=== PATIENT | male | born 2000 | race Caucasian/White ===

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

== ENCOUNTER 2020-03-23 16:55 | Emergency (ER) | payer BC ==
[~2020-03-23] VITALS: Ht 175.3 cm; Wt 61.4 kg
[~2020-03-23 16:55] MED LIST: LEXAPRO 10MG10 MG PO
[2020-03-23 17:02] VITALS: TEMP 98.5
[2020-03-23 17:25] LABS: BASO # 0.1 (0.0-0.2); BASO % 0.5 % (0.0-2.0); EOS % 0.4 % (0-4.0); GRAN # 8.8 (1.4-6.5); GRAN % 80.3 % (42.2-75.2); HEMATOCRIT 42.2 % (36.0-47.0); LYMPH # 1.3 (1.2-3.4); LYMPH % 12.3 % (20.0-51.0); MEAN CELL VOLUME 87 fl (80.0-95.0); MEAN CORPUSCULAR HEMOGLOBIN 31 pg (26.0-32.0); MEAN CORPUSCULAR HGB CONC 36 g/dl (33.0-37.0); MEAN PLATELET VOLUME 10.1 fl (7.4-10.4); MONO # 0.7 (0.1-0.6); PLATELET COUNT 269 K/mm3 (130-400); RED BLOOD COUNT 4.86 M/mm3 (4.20-5.60)
[2020-03-23 17:39] LABS: ALBUMIN 5.3 gm/dL (3.5-5.0); BILIRUBIN,TOTAL 0.6 mg/dL (0.0-1.0); CALCIUM 9.5 mg/dL (8.4-10.2); CREATININE, serum 1.01 (0.66-1.25); POTASSIUM 3.5 mmol/L (3.4-5.0); TOTAL PROTEIN 8.5 gm/dL (6.4-8.2)
[2020-03-23] MEDS ORDERED: NORCO 325 MG-51 TAB PO (19:27)
[2020-03-23 20:14] VITALS: BP 121/76; PULSE 74
== END 2020-03-23 20:14 | disposition home or self-care (01) ==
LOC: COL.ER 16:55
PROVIDERS: Emergency Medicine
DX: S62.316A Displaced fracture of base of fifth metacarpal bone, right hand, initial encounter for closed fracture (principal); S02.832A Fracture of medial orbital wall, left side, initial encounter for closed fracture; S02.2XXA Fracture of nasal bones, initial encounter for closed fracture; S02.40DA Maxillary fracture, left side, initial encounter for closed fracture; S01.511A Laceration without foreign body of lip, initial encounter; R40.2410 Glasgow coma scale score 13-15, unspecified time; W17.89XA Other fall from one level to another, initial encounter; Y92.89 Other specified places as the place of occurrence of the external cause
CPT/HCPCS: J1885; J2270; J2405; J7030

== ENCOUNTER 2020-12-08 22:27 | Emergency (ER) | payer BC ==
[~2020-12-08] VITALS: Ht 172.7 cm; Wt 68.2 kg
[~2020-12-08 22:27] MED LIST changes: +NORCO 325 MG-51 TAB PO
[2020-12-08 22:28] VITALS: TEMP 98.1
[2020-12-08 23:27] LABS: BASO % 0.4 % (0.0-2.0); EOS % 0.5 % (0-4.0); GRAN # 5.3 (1.4-6.5); GRAN % 65.2 % (42.2-75.2); HEMATOCRIT 37.9 % (36.0-47.0); HEMOGLOBIN 13.2 g/dl (12.5-16.1); LYMPH % 24.5 % (20.0-51.0); MEAN CELL VOLUME 89 fl (80.0-95.0); MEAN CORPUSCULAR HEMOGLOBIN 31 pg (26.0-32.0); MEAN CORPUSCULAR HGB CONC 35 g/dl (33.0-37.0); MEAN PLATELET VOLUME 10.6 fl (7.4-10.4); MONO # 0.7 (0.1-0.6); PLATELET COUNT 245 K/mm3 (130-400); RED BLOOD COUNT 4.25 M/mm3 (4.20-5.60); REDCELL DISTRIBUTION WIDTH-CV 11.9 % (11.5-14.5)
[2020-12-08 23:30] LABS: PH 6 (5-8); SQUAMOUS EPITHELIAL None Seen /hpf; URINE APPEARANCE Clear; URINE BACTERIA None Seen /hpf; URINE BILIRUBIN Negative (NEGATIVE); URINE BLOOD 1+ (NEGATIVE); URINE COLOR Colorless; URINE GLUCOSE Negative (NEGATIVE); URINE KETONE Negative (NEGATIVE); URINE LEUKOCYTE ESTERASE Negative (NEGATIVE); URINE NITRATE Negative (NEGATIVE); URINE PROTEIN(semi-quant) Negative (NEGATIVE); URINE RBC None Seen /hpf; URINE UROBILINOGEN Negative (NEGATIVE); URINE WBC 0-2 /hpf
[2020-12-08 23:35] LABS: INR 1.2 (0.8-3.0); PROTHROMBIN TIME 12.9 SECONDS (9.7-12.8)
[2020-12-08 23:38] LABS: PARTIAL THROMBOPLASTIN TIME 26.7 SECONDS (26.0-37.0)
[2020-12-08 23:38] LABS: COLLECTION METHOD CLEAN CATCH
[2020-12-08 23:39] LABS: TRICYCLIC ANTIDEPRESS URINE NEGATIVE
[2020-12-08 23:50] LABS: ALANINE AMINOTRANSFERASE 15 U/L (4-49); ALBUMIN 4.4 gm/dL (3.5-5.0); ALCOHOL(ethanol),MEDICAL 92 mg/dL; ALKALINE PHOSPHATASE 64 U/L (50-136); ANION GAP 13 mmol/L (7-16); AST,SGOT 28 U/L (15-37); BILIRUBIN,TOTAL 0.6 mg/dL (0.0-1.0); BLOOD UREA NITROGEN 10 mg/dL (9-20); CARBON DIOXIDE 17 mmol/L (22-30); CHLORIDE 108 mmol/L (98-107); CREATINE KINASE 180 U/L (55-170); CREATININE, serum 0.95 (0.66-1.25); GLUCOSE 90 mg/dL (74-106); LIPASE 21 U/L (23-300); SODIUM 138 mmol/L (137-145); TOTAL PROTEIN 7.1 gm/dL (6.4-8.2)
[2020-12-08 23:51] LABS: TROPONIN-I < 0.012 ng/mL (0.000-0.035)
[2020-12-09 01:40] VITALS: BP 120/68; PULSE 88
[2020-12-09] MEDS ORDERED: NORCO 325 MG-51 TAB PO ×2 (11:24)
== END 2020-12-09 01:45 | disposition home or self-care (01) ==
LOC: COL.ER 22:27
PROVIDERS: Emergency Medicine
DX: S09.90XA Unspecified injury of head, initial encounter (principal); S20.219A Contusion of unspecified front wall of thorax, initial encounter; R29.0 Tetany; E86.0 Dehydration; E87.6 Hypokalemia; M54.2 Cervicalgia; R00.0 Tachycardia, unspecified; V43.52XA Car driver injured in collision with other type car in traffic accident, initial encounter
CPT/HCPCS: J1885; J2060; J3480; J7030; J7120; Q9967